=== PATIENT | female | born 1930 | race Caucasian/White ===

== ENCOUNTER 2017-07-26 16:14 | Emergency (ER) | payer MEDICARE ==
[~2017-07-26] VITALS: Ht 147.3 cm; Wt 47.3 kg
[~2017-07-26 16:14] MED LIST: ASPI1TAB57 PO; KETO1DRO3 EACH EYE; LACTCAP8 PO; NITR.3 SL; PIND5 PO
[2017-07-26 16:16] VITALS: BP 190/79; PULSE 60; RESP 20; TEMP 98.5; O2SAT 96
[2017-07-26] MEDS ORDERED: SODIUM CHLORIDE 0.9% FLUSH 10 ML FLUSH IVF PRN (16:30)
[2017-07-26 16:31] VITALS: O2SAT 97
--- NOTE | 2017-07-26 16:54 | PD ---
HPI . Chest pain Chief Complaint: Chest Pain Time Seen by Provider: 16:22 Travel History International Travel<30 days: No Contact w/Intl Traveler<30days: No Traveled to known affect area: No History of Present Illness HPI This patient presents from her doctor's office with the chief complaint of chest pain. She sees Dr. Waldron. She presented to him today because of a cold which she has had since 07/20. She has been taking Tessalon Perles with no relief of her symptoms. She states that she is now having difficulty breathing , especially at nighttime. She does report that she has used a couple of Nitrostat sprays with relief of her dyspnea. Her chest pain is rated 5/10. Associated symptoms include nausea, weakness, poor appetite and headache. The pain radiates to the left shoulder and arm and occasionally to the left fifth finger. She states that she has been using a heating pad on her chest and that it does relieve her pain somewhat. She believes that she had a fever at the onset of her symptoms but that the fever has now broken. She states that her cough was initially productive of clear phlegm and then yellow phlegm but that it is now back to clear. PFSH Past Medical History Arthritis: Yes Cancer: No Cardiovascular Problems: Yes (AORTIC STENOSIS) High Cholesterol: Yes Chest Pain: Yes Diminished Hearing: No Endocrine: No Gastrointestinal Disorders: No Genitourinary: No Hypertension: Yes Immune Disorder: No Implanted Vascular Access Dvce: No Musculoskeletal: Yes Neurologic: No Psychiatric: No Reproductive: No Respiratory: No Menopausal: Yes Past Surgical History Other Surgery: Yes (SKIN CANCER REMOVAL) Social History Alcohol Use: No Tobacco Use: No Substance Use: No Allergies-Medications (Allergen,Severity, Reaction): Coded Allergies: clonidine (Unverified Allergy, Severe, RASH, 11/17/16) penicillin G (Unverified Allergy, Severe, RASH, 11/17/16) acetaminophen (Unverified Allergy, Unknown, RASH, 11/17/16) ciprofloxacin (Unverified Allergy, Unknown, RASH, 11/17/16) levofloxacin (Unverified Allergy, Unknown, RASH, 11/17/16) nitrofurantoin (Unverified Allergy, Unknown, RASH, 11/17/16) propoxyphene (Unverified Allergy, Unknown, RASH, 11/17/16) solifenacin (Unverified Allergy, Unknown, RASH, 11/17/16) sulfamethoxazole (Unverified Allergy, Unknown, RASH, 11/17/16) trimethoprim (Unverified Allergy, Unknown, RASH, 11/17/16) Uncoded Allergies: Cetaphil (Allergy, Severe, Swelling, 04/20/16) DURAVENT (Allergy, Severe, RASH, 03/16/14) Provastatin (Allergy, Severe, Nausea/Vomiting, 04/20/16) Reported Meds & Prescriptions Reported Meds & Active Scripts Active Reported Thera Tears Allergy Eye Opth Drops (Ketotifen Opth Drops) 0.025% Drops 1 Drop EACH EYE Q6H PRN Aspirin 81 (Aspirin) 81 Mg Tabdr 2 Tab PO DAILY Probiotic (Lactobacillus Acidophilus) 1 Cap Cap 1 Cap PO DAILY Nitrostat SL (Nitroglycerin) 0.3 Mg Subl 0.3 Mg SL DIRECTED PRN ONE TABLET UNDER THE TONGUE NEEDED FOR CHEST PAIN, MAY REPEAT EVERY FIVE MINUTES FOR A TOTAL OF 3 DOSES OR CALL 911 IF NO RELIEF Pindolol 5 Mg Tab 0.5 Tab PO DAILY Review of Systems Except as stated in HPI: all other systems reviewed are Neg General / Constitutional: Positive: Fever (Her fever has now broken) HENT: Positive: Headaches Cardiovascular: Positive: Chest Pain or Discomfort Respiratory: Positive: Cough, Shortness of Breath Gastrointestinal: Positive: Nausea, Loss of Appetite Genitourinary: Positive: Nocturia (She reports 6-7 episodes of urination her night since January) Neurologic: Positive: Weakness Physical Exam Narrative GENERAL: Thin, elderly woman who is lucid and able to give most of her own history. She is assisted by her daughter. SKIN: warm/dry. Normal color and turgor. HEAD: Normocephalic. Atraumatic. EYES: Pupils equal and round. No scleral icterus. No injection or drainage. ENT: No nasal bleeding or discharge. Mucous membranes pink and moist. NECK: Trachea midline. Full range of motion without pain.. CARDIOVASCULAR: Regular rate and rhythm. Systolic ejection murmur. RESPIRATORY: No accessory muscle use. Rhonchi in the left base. MUSCULOSKELETAL: No obvious deformities. NEUROLOGICAL: Awake and alert. No obvious cranial nerve deficits. Motor grossly within normal limits. Normal speech. PSYCHIATRIC: Appropriate mood and affect; insight and judgment normal. Data Data Last Documented VS Vital Signs Date Time Temp Pulse Resp B/P (MAP) Pulse Ox O2 Delivery O2 Flow Rate FiO2 07/26/17 17:38 65 18 155/68 (97) 96 Room Air 07/26/17 16:16 98.5 Orders Orders Basic Metabolic Panel (Bmp) (07/26/17 16:19) Ckmb (Isoenzyme) Profile (07/26/17 16:19) Complete Blood Count With Diff (07/26/17 16:19) Magnesium (Mg) (07/26/17 16:19) Prothrombin Time / Inr (Pt) (07/26/17 16:19) Act Partial Throm Time (Ptt) (07/26/17 16:19) Troponin I (07/26/17 16:19) Chest, Pa & Lat (07/26/17 16:19) Electrocardiogram (07/26/17 16:22) Basic Metabolic Panel (Bmp) (07/26/17 16:22) Magnesium (Mg) (07/26/17 16:22) Act Partial Throm Time (Ptt) (07/26/17 16:22) Troponin I (07/26/17 16:22) Ecg Monitoring (07/26/17 16:22) Iv Access Insert/Monitor (07/26/17 16:22) Oximetry (07/26/17 16:22) Sodium Chloride 0.9% Flush (Ns Flush) (07/26/17 16:30) Urinalysis - C+S If Indicated (07/26/17 16:46) CKMB (07/26/17 16:30) CKMB% (07/26/17 16:30) Labs Laboratory Tests Test 07/26/17 16:30 White Blood Count 3.6 TH/MM3 Red Blood Count 3.87 MIL/MM3 Hemoglobin 12.1 GM/DL Hematocrit 35.8 % Mean Corpuscular Volume 92.6 FL Mean Corpuscular Hemoglobin 31.3 PG Mean Corpuscular Hemoglobin Concent 33.8 % Red Cell Distribution Width 13.8 % Platelet Count 142 TH/MM3 Mean Platelet Volume 9.2 FL Neutrophils (%) (Auto) 50.5 % Lymphocytes (%) (Auto) 34.5 % Monocytes (%) (Auto) 13.4 % Eosinophils (%) (Auto) 1.0 % Basophils (%) (Auto) 0.6 % Neutrophils # (Auto) 1.8 TH/MM3 Lymphocytes # (Auto) 1.2 TH/MM3 Monocytes # (Auto) 0.5 TH/MM3 Eosinophils # (Auto) 0.0 TH/MM3 Basophils # (Auto) 0.0 TH/MM3 CBC Comment DIFF FINAL Differential Comment Prothrombin Time 9.9 SEC Prothromb Time International Ratio 1.0 RATIO Activated Partial Thromboplast Time 27.7 SEC Blood Urea Nitrogen 39 MG/DL Creatinine 1.56 MG/DL Random Glucose 95 MG/DL Calcium Level 8.9 MG/DL Magnesium Level 2.2 MG/DL Sodium Level 136 MEQ/L Potassium Level 4.3 MEQ/L Chloride Level 100 MEQ/L Carbon Dioxide Level 29.7 MEQ/L Anion Gap 6 MEQ/L Estimat Glomerular Filtration Rate 31 ML/MIN Total Creatine Kinase 178 U/L Creatine Kinase MB 3.3 NG/ML Troponin I LESS THAN 0.02 NG/ML MDM Medical Decision Making Medical Screen Exam Complete: Yes Emergency Medical Condition: Yes Medical Record Reviewed: Yes (This patient has had only one previous visit to the emergency department and that was in 2013 for an allergic reaction) Interpretation(s) EKG shows a sinus rhythm with LVH. No acute ischemic changes. Differential Diagnosis Differential diagnosis of chest pain includes but is not limited to musculoskeletal pain, pulmonary embolism, acute coronary syndrome, pneumonia, pleurisy Narrative Course This patient presents with chest pain associated with shortness of breath, cough , nausea, weakness. The pain radiates to her left arm. She needs to be evaluated for coronary disease. CBC & BMP Diagram 07/26/17 16:30 Calcium Level 8.9, Magnesium Level 2.2 trop < 0.02 Last Impressions Chest X-Ray 07/26/17 1619 Signed Impressions: Service Date/Time: Wednesday, July 26, 2017 16:55 - CONCLUSION: No acute disease. Wilman Forrest MD Admission to the chest pain center has been offered. The patient really does not want to be admitted to the hospital. She states her primary care physician has called in prescriptions for bronchitis. We have confirmed this with Khadijah. I will discharge her to home. She can follow-up with her market research interviewer once her bronchitis has cleared up. Diagnosis Primary Impression: Chest pain Qualified Codes: R07.9 - Chest pain, unspecified Patient Instructions: Acute Bronchitis (DC), Chest Pain (DC), General Instructions Disposition: 01 DISCHARGE HOME Condition: Stable Winifred Mooney MD Jul 26, 2017 16:53
[2017-07-26 17:05] LABS: AUTOMATED NEUTROPHIL # 1.8 TH/MM3 (1.8-7.7); BASOPHIL % 0.6 % (0.0-2.0); HEMATOCRIT 35.8 % (35.0-46.0); HEMOGLOBIN 12.1 GM/DL (11.6-15.3); LYMPH % 34.5 % (9.0-44.0); LYMPHOCYTE # 1.2 TH/MM3 (1.0-4.8); MEAN CELL VOLUME 92.6 FL (80.0-100.0); MEAN CORPUSCULAR HEMOGLOBIN 31.3 PG (27.0-34.0); MEAN CORPUSCULAR HGB CONC 33.8 % (32.0-36.0); MEAN PLATELET VOLUME 9.2 FL (7.0-11.0); MONO % 13.4 % (0.0-8.0); MONOCYTE # 0.5 TH/MM3 (0-0.9); NEUT % 50.5 % (16.0-70.0); PLATELET COUNT 142 TH/MM3 (150-450); RED BLOOD COUNT 3.87 MIL/MM3 (4.00-5.30); RED CELL DISTRIBUTION WIDTH 13.8 % (11.6-17.2); WHITE BLOOD COUNT 3.6 TH/MM3 (4.0-11.0)
[2017-07-26 17:07] LABS: PROTHROMBIN TIME - PATIENT 9.9 SEC (9.8-11.6)
[2017-07-26 17:10] LABS: BICARBONATE 29.7 MEQ/L (21.0-32.0); BLOOD UREA NITROGEN 39 MG/DL (7-18); CALCIUM 8.9 MG/DL (8.5-10.1); CHLORIDE 100 MEQ/L (98-107); CREATININE 1.56 MG/DL (0.50-1.00); GLOMERULAR FILTRATION RATE 31 ML/MIN (>89); GLUCOSE,RANDOM 95 MG/DL (74-106); MAGNESIUM 2.2 MG/DL (1.5-2.5); SODIUM (NA) 136 MEQ/L (136-145); TROPONIN I LESS THAN 0.02 NG/ML (0.02-0.05)
--- NOTE | 2017-07-26 17:19 | RADRPT ---
EXAM DATE/TIME: 07/26/2017 16:55 [facility] COMPARISON: No previous studies available for comparison. INDICATIONS : Chest pain with shortness of breath. MEDICAL HISTORY : Hypertension. SURGICAL HISTORY : None. ENCOUNTER: Initial ACUITY: 1 week PAIN SCORE: 5/10 LOCATION: Bilateral chest FINDINGS: PA and lateral views of the chest demonstrate the lungs to be symmetrically aerated without evidence of mass, infiltrate or effusion. The cardiomediastinal contours are unremarkable. Osseous structure s are intact. Mild atherosclerotic changes are present in the aorta. There are tracheal calcification s. Overlying electrocardiogram leads are present. There is moderate scoliosis. CONCLUSION: No acute disease. Wilman Forrest MD on July 26, 2017 at 17:16 Board Certified Radiologist. This report was verified electronically.
[2017-07-26 17:38] VITALS: BP 155/68; PULSE 65; RESP 18; O2SAT 96
[2017-07-26 18:43] LABS: BACTERIA, URINE OCC /hpf; BILIRUBIN, URINE NEG (NEG); BLOOD, URINE NEG (NEG); GLUCOSE,URINE NEG (NEG); KETONE, URINE NEG (NEG); NITRITE,URINE POS (NEG); URINE COLOR LIGHT-YELLOW (YELLW/STRAW); URINE LEUKOCYTE ESTERASE SMALL (NEG); WHITE BLOOD CELL CLUMPS RARE
[2017-07-26] MEDS ORDERED: cefTRIAXone INJ 1,000 MG in SODIUM CHLORIDE 0.9% INJ 100 ML IV ONE (19:00)
[2017-07-26 19:22] VITALS: BP 166/74; PULSE 67; RESP 16
--- NOTE | 2017-07-26 21:57 | EKG ---
Date Performed: 07/26/2017 Time Performed: 16:35:14 PTAGE: 86 years EKG: SINUS BRADYCARDIA MINIMAL VOLTAGE CRITERIA FOR LVH, CONSIDER NORMAL VARIANT NONSPECIFIC ST ABNORMALITY ABNORMAL ECG NO PREVIOUS TRACING DOCTOR: Brock Schulz Interpretating Date/Time 07/26/2017 21:56:37
--- NOTE | 2017-07-29 11:42 | PD ---
Physical Exam Date Seen by Provider: Jul 29, 2017 Narrative This patient's urine culture is back and is positive for E. coli. She was treated in the emergency department with ceftriaxone. Her primary care physician had prescribed Zithromax for bronchitis. Because of this, further antibiotics were withheld pending culture report and response to therapy. I have called Dr. Waldron's office. They are aware of her urine culture and the nurse from their office will contact the patient today to see how she is doing. Zithromax is not listed on the culture report. However, her UTI may very well have been adequately treated by the single dose of ceftriaxone. Data Data Last Documented VS Vital Signs Date Time Temp Pulse Resp B/P (MAP) Pulse Ox O2 Delivery O2 Flow Rate FiO2 07/26/17 20:24 07/26/17 19:22 67 16 Room Air 07/26/17 17:38 96 07/26/17 16:16 98.5 Orders Orders Basic Metabolic Panel (Bmp) (07/26/17 16:19) Ckmb (Isoenzyme) Profile (07/26/17 16:19) Complete Blood Count With Diff (07/26/17 16:19) Magnesium (Mg) (07/26/17 16:19) Prothrombin Time / Inr (Pt) (07/26/17 16:19) Act Partial Throm Time (Ptt) (07/26/17 16:19) Troponin I (07/26/17 16:19) Chest, Pa & Lat (07/26/17 16:19) Electrocardiogram (07/26/17 16:22) Ecg Monitoring (07/26/17 16:22) Iv Access Insert/Monitor (07/26/17 16:22) Oximetry (07/26/17 16:22) Sodium Chloride 0.9% Flush (Ns Flush) (07/26/17 16:30) Urinalysis - C+S If Indicated (07/26/17 16:46) CKMB (07/26/17 16:30) CKMB% (07/26/17 16:30) Urine Culture (07/26/17 18:01) Ceftriaxone Inj (Rocephin Inj) (07/26/17 19:00) Ed Discharge Order (07/26/17 18:57) Labs Laboratory Tests Test 07/26/17 16:30 07/26/17 18:01 White Blood Count 3.6 TH/MM3 Red Blood Count 3.87 MIL/MM3 Hemoglobin 12.1 GM/DL Hematocrit 35.8 % Mean Corpuscular Volume 92.6 FL Mean Corpuscular Hemoglobin 31.3 PG Mean Corpuscular Hemoglobin Concent 33.8 % Red Cell Distribution Width 13.8 % Platelet Count 142 TH/MM3 Mean Platelet Volume 9.2 FL Neutrophils (%) (Auto) 50.5 % Lymphocytes (%) (Auto) 34.5 % Monocytes (%) (Auto) 13.4 % Eosinophils (%) (Auto) 1.0 % Basophils (%) (Auto) 0.6 % Neutrophils # (Auto) 1.8 TH/MM3 Lymphocytes # (Auto) 1.2 TH/MM3 Monocytes # (Auto) 0.5 TH/MM3 Eosinophils # (Auto) 0.0 TH/MM3 Basophils # (Auto) 0.0 TH/MM3 CBC Comment DIFF FINAL Differential Comment Prothrombin Time 9.9 SEC Prothromb Time International Ratio 1.0 RATIO Activated Partial Thromboplast Time 27.7 SEC Blood Urea Nitrogen 39 MG/DL Creatinine 1.56 MG/DL Random Glucose 95 MG/DL Calcium Level 8.9 MG/DL Magnesium Level 2.2 MG/DL Sodium Level 136 MEQ/L Potassium Level 4.3 MEQ/L Chloride Level 100 MEQ/L Carbon Dioxide Level 29.7 MEQ/L Anion Gap 6 MEQ/L Estimat Glomerular Filtration Rate 31 ML/MIN Total Creatine Kinase 178 U/L Creatine Kinase MB 3.3 NG/ML Troponin I LESS THAN 0.02 NG/ML Urine Color LIGHT-YELLOW Urine Turbidity CLEAR Urine pH 5.0 Urine Specific [place] 1.007 Urine Protein NEG mg/dL Urine Glucose (UA) NEG mg/dL Urine Ketones NEG mg/dL Urine Occult Blood NEG Urine Nitrite POS Urine Bilirubin NEG Urine Urobilinogen LESS THAN 2.0 MG/DL Urine Leukocyte Esterase SMALL Urine RBC LESS THAN 1 /hpf Urine WBC 12 /hpf Urine WBC Clumps RARE Urine Bacteria OCC /hpf Microscopic Urinalysis Comment CULTURE INDICATED MDM Supervised Visit with MADDY: No Diagnosis Primary Impression: UTI (urinary tract infection) Additional Impression: Chest pain Patient Instructions: General Instructions, Chest Pain (DC), Acute Bronchitis ( DC) Departure Forms: Tests/Procedures Additional Instruction: Contact your doctor tomorrow to see if the medication he prescribed will cover a bladder infection. Disposition: DISCHARGE HOME Condition: Stable Winifred Mooney MD Jul 29, 2017 11:42
== END 2017-07-26 20:44 | disposition home or self-care (01) ==
LOC: NEPC 16:14
DX: N39.0 Urinary tract infection, site not specified (principal); B96.20 Unspecified Escherichia coli [E. coli] as the cause of diseases classified elsewhere; R07.9 Chest pain, unspecified; R94.31 Abnormal electrocardiogram [ECG] [EKG]; E78.00 Pure hypercholesterolemia, unspecified; I10 Essential (primary) hypertension; M19.90 Unspecified osteoarthritis, unspecified site; I35.0 Nonrheumatic aortic (valve) stenosis; Z16.23 Resistance to quinolones and fluoroquinolones
CPT/HCPCS: 71046; 80048; 81001; 82550; 82552; 83735; 84484; 85025; 85610; 85730; 87077; 87086; 87186; 93005; 96365; 99285; J0696